=== PATIENT | female | born 1980 | race Caucasian/White ===

== ENCOUNTER 2017-02-11 10:22 | Emergency (ER) | payer OTHER ==
[~2017-02-11] VITALS: Ht 157.5 cm; Wt 102.1 kg
[2017-02-11 10:28] VITALS: BP 129/86
--- NOTE | 2017-02-11 10:53 | ED UPPER/LOWER EXTREMITY COMPL ---
History of Present Illness General Chief Complaint: Lower Extremity Injury Stated Complaint: R KNEE INJURY S/P TWISTING IT YESTERDAY Source: patient Exam Limitations: no limitations Vital Signs & Intake/Output Vital Signs & Intake/Output Vital Signs Date Time Temp Pulse Resp B/P B/P Pulse O2 O2 Flow FiO2 Mean Ox Delivery Rate 02/11 1047 98 Room Air 02/11 1028 98.4 86 18 129/86 98 Room Air Allergies Coded Allergies: amlodipine (Severe, SWELLING 02/11/17) Triage Note: 36 YO FAMEL TO TRIAGE C/O R KNEE PAIN S/P TWISTING IT WALKING UP THE STAIRS YESTERDAY. STATES SHE FELT A "POP" AFTER TWISTING IT. STATES SHE FEELS IF HER KNEE IS GONIG TO GIVE OUT WHILE SHES WALKING. Triage Nurses Notes Reviewed? yes Onset: Abrupt Duration: hour(s): (FEW) Timing: single episode today Severity: moderate, severe Pain/Injury Location: Right: Knee. Modifying Factors: Worsens With: movement, other (WALKING). Associated Symptoms: FEELS LIKE IT GIVING WAY : No Patient currently breastfeeds: No HPI: This is a 36-year-old female with history of previous ACL repair on her right knee 20 years ago presents to the ER chief complaint of sudden onset of knee pain. She states she was walking up the stairs when something in her hand when she felt her right knee become acutely painful. She was able to drop things in the house and as she was walking down the stairs felt her right knee pop. She did not go down to the ground. No significant swelling but states that it hurts. She feels like her knee could give way. Past History Travel History Traveled to [place] past 21 day No Medical History Any Pertinent Medical History? see below for history Neurological: NONE EENT: NONE Cardiovascular: hypertension Respiratory: NONE Gastrointestinal: NONE Hepatic: NONE Renal: NONE Musculoskeletal: NONE Psychiatric: bipolar disease Endocrine: NONE Blood Disorders: NONE Cancer(s): NONE Surgical History Surgical History: RIGHT KNEE ACL REPAIR 20 YEARS AGO Psychosocial History What is your primary language Kazakh Tobacco Use: Never used Family History Hx Contributory? No Review of Systems Review of Systems Constitutional: Denies: chills, fever. EENTM: Reports: no symptoms. Respiratory: Denies: cough, short of breath. Cardiovascular: Denies: chest pain. Gastrointestinal/Abdominal: Denies: abdominal pain. Genitourinary: Reports: no symptoms. Musculoskeletal: Reports: muscle stiffness. Denies: joint swelling. Skin: Reports: no symptoms. Neurological/Psychological: Reports: no symptoms. Hematologic/Endocrine: Denies: bruising, bleeding, polyuria, polydipsia. Immunological: Reports: no symptoms. All Other Systems: Reviewed and Negative Physical Exam Physical Exam General Appearance: well developed/nourished, alert, awake, mild distress Head: atraumatic Eyes: Bilateral: PERRL, EOMI. Ears, Nose, Throat: normal pharynx, normal ENT inspection, hearing grossly normal Neck: normal inspection, supple Cardiovascular/Respiratory: regular rate/rhythm Back: normal inspection Leg Left: normal range of motion, normal inspection Leg Right: normal range of motion, normal inspection Hip Left: normal range of motion, normal inspection Hip Right: normal range of motion, normal inspection Knee Left: normal range of motion, normal inspection Knee Right: normal inspection, tenderness, pain, limited range of motion, PAIN WITH RANGE OF MOTION STABLE LIGAMENTOUS EXAM NO JOINT SWELLING Foot Left: normal inspection, normal range of motion Foot Right: normal inspection, normal range of motion Neurologic/Tendon: normal sensation, normal motor functions, normal tendon functions, responds to pain, no evidence tendon injury Skin: intact, normal color, warm/dry Lymphatic: no anterior cervical fran Progress Differential Diagnosis: fracture, sprain, LIGAMENTOUS INJURY Plan of Care: Orders Procedure Date/time Status Durable Medical Equipment 02/11 1118 Active Diagnostic Imaging: Viewed by Me: Radiology Read. Discussed w/RAD: Radiology Read. Radiology Impression: PATIENT: JOSÉ LUIS BAL PRESENT AGE: 36 PATIENT ACCOUNT NO: [id number] : 79 LOCATION: [facility] ORDERING PHYSICIAN: EFRAIN WHITING MD SERVICE DATE: 02/11/171043 EXAM TYPE: RAD - XRY -KNEE COMPLETE RIGHT EXAMINATION: XR KNEE, RIGHT CLINICAL INFORMATION: Right knee pain. History of ACL surgery. COMPARISON: None TECHNIQUE: Four views of the right knee. FINDINGS: The patient is status post ACL repair. The bony anchors are well seated. Knee joint alignment is normal. No acute fracture or dislocation is seen. There is mild degenerative change in all 3 compartments of the knee with small spur formation and relative preservation of the joint space height seen. No soft tissue calcifications are noted. Quadriceps tendon and patellar tendon appear intact. IMPRESSION: 1. Anatomic alignment status post ACL repair. 2. Mild tricompartmental degenerative changes in the right knee joint. DICTATED BY: FOUZIA BARNES MD DATE/TIME DICTATED:02/11/171104 INDUSTRIAL [employer]GANIZATION MANAGER:ERI DATE/TIME TRANSCRIBED:02/11/171104 CONFIDENTIAL, DO NOT COPY WITHOUT APPROPRIATE AUTHORIZATION. <Electronically signed in Other Vendor System> SIGNED BY: FOUZIA BARNES MD 02/11/17 1111 Departure Departure Time of Disposition: 1118 Disposition: HOME OR SELF CARE Condition: Stable Clinical Impression Primary Impression: Right knee sprain Referrals: JAMILA GREGORY,JACQUIE (PCP/Family) NAI GREGORY,JENNIFER Webb Additional Instructions: USE THE KNEE IMMOBILIZER AND CRUTCHES DIRECTED ICE, REST AND ELEVATE THE LEG FOLLOW UP WITH THE ORTHOPEDIC DOCTOR LISTED OR YOUR PREVIOUS DOCTOR RETURN NEEDED Departure Forms: Customer Survey General Discharge Information Procedures Splinting Location: RIGHT LEG Pre-Made Type: CRUTCHES AND KNEE IMMOBILIZER Splint Applied By: splint applied by other Pre-Proc Neuro Vasc Exam: normal
--- NOTE | 2017-02-11 11:11 | RADIOLOGY REPORT ---
EXAMINATION: XR KNEE, RIGHT CLINICAL INFORMATION: Right knee pain. History of ACL surgery. COMPARISON: None TECHNIQUE: Four views of the right knee. FINDINGS: The patient is status post ACL repair. The bony anchors are well seated. Knee joint alignment is normal. No acute fracture or dislocation is seen. There is mild degenerative change in all 3 compartments of the knee with small spur formation and relative preservation of the joint space height seen. No soft tissue calcifications are noted. Quadriceps tendon and patellar tendon appear intact. IMPRESSION: 1. Anatomic alignment status post ACL repair. 2. Mild tricompartmental degenerative changes in the right knee joint.
== END 2017-02-11 11:36 ==
LOC: ERH
DX: S83.91XA Sprain of unspecified site of right knee, initial encounter (principal); X58.XXXA Exposure to other specified factors, initial encounter; Y92.9 Unspecified place or not applicable; Y93.9 Activity, unspecified
CPT/HCPCS: 73562-RT